=== PATIENT | male | born 1960 | race Two or more races ===

== ENCOUNTER → 2017-06-29 | Outpatient (CLI) | payer OTHER ==
[~2017-06-29] MED LIST: ALPRAZOLAM; CIPRO500 MG; PERCOCET 5/3251 TAB
== END | disposition home or self-care (01) ==
LOC: SONOGRAMA 10:05
DX: R10.84 Generalized abdominal pain (principal); R10.2 Pelvic and perineal pain

== ENCOUNTER 2018-03-17 10:29 | Outpatient (CLI) | payer OTHER | END 2018-03-17 12:50 | disposition home or self-care (01) | LOC: TOM 10:29 | DX: J18.9 Pneumonia, unspecified organism (principal) ==

== ENCOUNTER 2018-03-17 12:10 | Outpatient (CLI) | payer OTHER | END 2018-03-17 12:17 | disposition home or self-care (01) | LOC: LAB 12:10 | DX: J18.8 Other pneumonia, unspecified organism (principal); J11.1 Influenza due to unidentified influenza virus with other respiratory manifestations; D68.8 Other specified coagulation defects; D64.89 Other specified anemias ==

== ENCOUNTER 2018-09-16 11:52 | Outpatient (CLI) | payer OTHER | END 2018-09-16 11:58 | disposition home or self-care (01) | LOC: SONOGRAMA 11:52 | DX: N13.30 Unspecified hydronephrosis (principal); N13.2 Hydronephrosis with renal and ureteral calculous obstruction ==

== ENCOUNTER 2018-12-29 14:28 | Outpatient (CLI) | payer OTHER | END 2018-12-29 14:39 | disposition home or self-care (01) | LOC: RAD 14:28 | DX: M79.642 Pain in left hand (principal); M25.532 Pain in left wrist ==

== ENCOUNTER → 2018-12-30 | Outpatient (CLI) | payer OTHER | END | disposition home or self-care (01) | LOC: SONOGRAMA 11:24 | DX: R10.84 Generalized abdominal pain (principal) ==

== ENCOUNTER 2023-04-27 18:09 | Emergency (ER) | payer OTHER ==
[~2023-04-27] VITALS: Ht 170.2 cm; Wt 79.4 kg
[2023-04-27] MEDS ORDERED: FAMOTIDINE/PF 20 MG/2 ML VIAL IV PUSH ONE (23:15)
[2023-04-27] MEDS ORDERED: ONDANSETRON HCL 2 MG/ML VIAL IV ONE (23:15)
[2023-04-27] MEDS ORDERED: CLONIDINE HCL 0.1 MG TABLET PO ONE (23:15)
[2023-04-28 00:24] LABS: HEMATOCRIT 47.3 % (39.0-48.0); HEMOGLOBIN 16.2 g/dL (13-16.00); MEAN CELL VOLUME 90.1 fL (80.0-100.00); MEAN CORPUSCULAR HEMOGLOBIN 30.9 pg (27.00-32.0); MEAN CORPUSCULAR HGB CONC 34.3 g/dl (32.0-36.0); PLATELET COUNT 221 K/uL (150-450); RED BLOOD COUNT 5.25 M/uL (4.00-6.00); RED CELL DISTRIBUTION WIDTH 13.4 % (11.5-14.5)
[2023-04-28 00:48] LABS: ALBUMIN 4.5 gm/dL (3.4-5.0); BILIRUBIN TOTAL 1.26 mg/dL (0.3-1.2); CALCIUM 9.4 mg/dL (8.5-10.1); GFR 75.47; GLOBULINA 3.3 G/DL (2.4-3.5); POTASSIUM 4.09 mEq/L (3.5-5.1); TOTAL PROTEIN 7.8 gm/dL (6.4-8.2)
== END 2023-04-28 04:05 | disposition home or self-care (01) ==
LOC: ER 18:09
PROVIDERS: Emergency Medicine
DX: F41.9 Anxiety disorder, unspecified (principal); I10 Essential (primary) hypertension; Z91.041 Radiographic dye allergy status
CPT/HCPCS: 36415; 93005; 96365; 99284; J2405; J3490